=== PATIENT | female | born 1970 | race Caucasian/White ===

== ENCOUNTER 2019-07-06 15:12 | Inpatient (IN) | payer BC ==
[~2019-07-06 15:12] MED LIST: Dexamethasone 20 MG/5 ML VIAL ONE; Lidocaine 1% PF 5 ML VIAL ONE; Metoclopramide HCl 10 MG/2 ML VIAL ONE; Ondansetron PF 4 MG/2 ML Vial ONE; PHENYLEPHRINE-NS 100 MCG/ML 10 ML SYRINGE ONE; PROPOFOL 200 MG/20 ML VIAL ONE; Succinylcholine Chloride 20 MG/ML 10 ml SYRINGE FS ONE; ePHEDrine 50 MG/ML VIAL ONE
[2019-07-06] MEDS ORDERED: Adacel (T-DAP) 0.5 ML SYRINGE ONE (15:19)
[2019-07-06] MEDS ORDERED: Ondansetron PF 4 MG/2 ML Vial ONE (15:25)
[2019-07-06] MEDS ORDERED: Morphine 4 MG/ML VIAL ONE ×2 (15:25→15:46)
[2019-07-06 15:29] LABS: #Eosinphils 0.1 thou/uL (0.0-0.7); #Lymphocytes 2.1 thou/uL (1.20-3.40); #Monocytes 0.4 thou/uL (0.11-0.59); #Neutrophils 4.4 thou/uL (1.40-6.50); %Basophils 0.7 % (0.0-1.0); %Eosinophils 0.7 % (0.0-10.0); %Lymphocytes 29.6 % (21.0-51.0); %Monocytes 5.6 % (0.0-10.0); %Neutrophils 63.3 % (42.0-75.0); Hemoglobin 12.4 g/dL (12.0-16.0); Mean Corpuscular HGB CONC 34.9 g/dL (32.0-36.0); Mean Corpuscular Hemoglobin 32.6 pg (27.0-31.0); Mean Corpuscular Volume 93.4 fL (78.0-98.0); Mean Platelet Volume 8.5 fL (7.4-10.4); Platelet Count 257 thou/uL (130-400); RBC Distribution Width 11.9 % (11.5-14.5); Red Blood Cell (RBC) Count 3.79 mill/uL (4.20-5.40); White Blood Cell (WBC) Count 6.9 thou/uL (4.8-10.8)
--- NOTE | 2019-07-06 15:36 | RAD ---
XR Forearm Lt 2 View STANDARD: 07/06/2019 3:18 PM CLINICAL INDICATION: Injury COMPARISON: None. FINDINGS: Comminuted, displaced distal radial fracture with override of fracture fragments, as well as disrupti on of the radiocarpal articulation and widening of the DRUJ. Osseous irregularity present distal ulna likely relating to recent ulnar styloid avulsion injury. IMPRESSION: Fracture dislocation of the distal radius with associated disruption of the radiocarpal alignment and the DRUJ. Distal ulnar fracture. Recommend orthopedic consultation.
[2019-07-06 15:38] LABS: BHCG - Serum Negative (NEGATIVE); Pregs Control Background? CLEAR/WHITE (CLR/WHITE); Pregs Control Bar Appear? YES (CONTROL BAR)
--- NOTE | 2019-07-06 15:38 | RAD ---
Exam: Chest one view HISTORY:Injury Comparison: None FINDINGS: Lungs: No masses or consolidation. Cardiac silhouette: Normal size Pulmonary vessels: Normal Pleural Spaces: Clear Pneumothorax: None Osseous abnormalities: None of acuity. IMPRESSION: No focal consolidation.
--- NOTE | 2019-07-06 15:48 | CT ---
Exam: CT brain PROVIDED CLINICAL HISTORY: Head injury COMPARISON: None FINDINGS: The ventricular system is normal in size and morphology. No evidence for intracranial hemorrhage or mass effect. Right parietal scalp swelling without evidence for skull fracture. IMPRESSION: No evidence for intracranial hemorrhage or mass effect.
--- NOTE | 2019-07-06 15:49 | CT ---
EXAM: CT cervical spine PROVIDED CLINICAL HISTORY: Trauma COMPARISON: None FINDINGS: No evidence for fracture or traumatic subluxation. No prevertebral soft tissue swelling apparent. Vi sualized lung apices appear clear. IMPRESSION: No evidence for fracture or traumatic subluxation.
[2019-07-06 15:50] LABS: ALT (SGPT) 15 U/L (8-55); AST (SGOT) 15 U/L (5-34); Albumin 4.4 g/dL (3.5-5.0); Alkaline Phosphatase 67 U/L (40-150); Anion Gap 14 mmol/L (10-20); BUN (Urea Nitrogen) 15 mg/dL (7.0-18.7); Bilirubin, Total 0.3 mg/dL (0.2-1.2); Calc. Creatinine Clearance 0 mL/min (70-130); Calcium 9.7 mg/dL (7.8-10.44); Carbon Dioxide 18 mmol/L (22-29); Chloride 105 mmol/L (98-107); Estimated GFR-MDRD 67; Globulin 2.6 g/dL (2.4-3.5); Glucose 109 mg/dL (70-105); Potassium 4.2 mmol/L (3.5-5.1); Sodium 133 mmol/L (136-145)
[2019-07-06] MEDS ORDERED: Fentanyl 100 MCG/2 ML VIAL ONE ×4 (15:56→21:15)
[2019-07-06] MEDS ORDERED: Lidocaine 1% PF 5 ML VIAL ONE (16:03)
[2019-07-06] MEDS ORDERED: Lidocaine 1% w/Epinephrine 1:100K 20 ML VIAL ONE (16:03)
[2019-07-06] MEDS ORDERED: Sodium Chloride 0.9% 30 ML ONE ×2 (16:28→18:33)
[2019-07-06] MEDS ORDERED: Bupivacaine PF 0.5% 30 ML VIAL ONE (16:28)
[2019-07-06] MEDS ORDERED: Bacitracin Zinc Ointment 30 gm TUBE ONE (16:28)
[2019-07-06] MEDS ORDERED: Heparin 10,000 UNITS/1 ML VIAL ONE (16:32)
[2019-07-06] MEDS ORDERED: Hetastarch 6% 500 ML 0 ML ONE (16:32)
[2019-07-06] MEDS ORDERED: Betamet Acet/Betamet Na Ph 30 MG/5 ML VIAL ONE (16:32)
[2019-07-06] MEDS ORDERED: Lidocaine 2% PF 5 ML VIAL ONE (16:32)
[2019-07-06] MEDS ORDERED: Ondansetron PF 4 MG/2 ML Vial IVP PRN (16:55)
[2019-07-06] MEDS ORDERED: Dextrose 5% in Water 1,000 ML IV PRN (16:55)
[2019-07-06] MEDS ORDERED: HumaLOG 300 UNITS/3 ML VIAL SC PRN (16:55)
[2019-07-06] MEDS ORDERED: Ondansetron ODT 4 MG TAB PO PRN (16:55)
[2019-07-06] MEDS ORDERED: hydrALAZINE 20 MG/ML VIAL SLOW IVP PRN (16:55)
[2019-07-06] MEDS ORDERED: Dextrose 50% Abboject 50 ML SYRINGE SLOW IVP PRN (16:55)
[2019-07-06] MEDS ORDERED: Scopolamine 1.5 mg/72 hour Patch ONE (16:55)
[2019-07-06] MEDS ORDERED: traMADol HCl 50 MG TAB PO PRN ×3 (16:58→21:22)
[2019-07-06] MEDS ORDERED: Ibuprofen 600 MG TAB PO PRN (16:58)
[2019-07-06] MEDS ORDERED: Sodium Chloride 0.9% 1,000 ML IV SCH (17:00)
[2019-07-06] MEDS ORDERED: Promethazine HCl 25 MG/ML VIAL ONE (17:28)
--- NOTE | 2019-07-06 18:50 | HP ---
HISTORY OF PRESENT ILLNESS: Ms. Yeh is a 48-year-old female who presented to the ER via EMS after being ejected off a horse. EMS report patient was thrown out of horse and she landed on a concrete wall hitting her hand and she sustained a large laceration of the back of her head, open fracture of the left wrist. The patient reports numbness of the left finger. She is unsure if she lost consciousness. She denies leg or hip pain. Upon arrival, patient's GCS was 15, complained of pain from the laceration on the back of her head and left wrist pain. Denies chest, abdominal, pelvic, or lower extremity pain. REVIEW OF SYSTEMS: Noncontributory except per HPI. PAST MEDICAL HISTORY: Deny past medical history. ALLERGY: No known allergies. SOCIAL HISTORY: The patient denies using alcohol, smoking, or drug use. PHYSICAL EXAMINATION: GENERAL: The patient is lying down in bed, in no acute distress. VITAL SIGNS: Blood pressure 120/77, heart rate 84, respiratory rate 17, temperature 98, pain from left wrist is 7/10. HEENT: On occipital area, there is a 3 cm laceration with large underlying hematoma with a small amount of superficial bleeding. Eyes, pupils are equal round, 3 mm and reactive to light. Extraocular muscle intact. NECK: Trachea midline. Normal range of motion. CHEST: Atraumatic. No crepitus. No pain on palpation. LUNGS: Clear bilaterally. HEART: Regular rate and rhythm. ABDOMEN: Nontender. No bruising. No deformity. Bowel sounds active. PELVIS: Stable. Nontender to palpation. EXTREMITIES: Left wrist obvious deformity of distal left wrist with visible bone and tendon _lost sensation to ulnar distribution of left hand, normal radial distribution sensation. The patient reports she cannot move her finger, but withdraw them to pain. Lower extremity, sensation normal. No deformity. Range of motion normal. NEUROLOGIC: No focal neurology except stated above. Speech normal. RADIOLOGY: Head CT negative. Cervical spine CT negative. Chest CT and chest x -ray are negative. Upper extremity show fracture dislocation of left distal radius. LABORATORY DATA: White count 6.9, hemoglobin 12.4, sodium 133, potassium 4.2, creatinine is 0.9, and AST 15, ALT 15. ASSESSMENT: 1. Status post ejected off a horse. 2. Open left wrist fracture, displaced. ulnar nerve neurology compromise, distribution, neurology compromise, 3. Skin laceration of occipital area. PLAN: Orthopedic and hand specialist Dr. Quinones will take the patient to the OR for ORIF of left wrist fracture and left hand neurology compromise as well as posterior head laceration, washout and closure. The patient will be put on pain control, nonpharmacological VTE prophylaxis. The patient will be discussed placement postop and pharmacological VTE prophylaxis postop. Job ID: [id number] MTDD
[2019-07-06] MEDS ORDERED: Promethazine HCl 25 MG/ML VIAL IM PRN ×2 (19:53→21:22)
[2019-07-06] MEDS ORDERED: Promethazine HCl 25 MG/ML VIAL SLOW IVP PRN (19:53)
[2019-07-06] MEDS ORDERED: Ondansetron HCl/PF 4 MG/2 ML Vial IVP PRN (19:53)
[2019-07-06] MEDS ORDERED: PHENYLEPHRINE-NS 100 MCG/ML 10 ML SYRINGE ONE (19:54)
--- NOTE | 2019-07-06 20:07 | RAD ---
Intraoperative imaging of the left wrist: 07/06/2019 HISTORY: ORIF FINDINGS: 3 intraoperative radiographs demonstrate percutaneous pinning of a comminuted distal radial fracture. There is a transverse fracture at the base of the ulnar styloid. IMPRESSION: ORIF as above.
[2019-07-06] MEDS ORDERED: Bisacodyl 10 MG SUPP PR PRN (21:22)
[2019-07-06] MEDS ORDERED: Milk Of Magnesia 30 ML UDCUP PO PRN (21:22)
[2019-07-06] MEDS ORDERED: Ondansetron PF 4 MG/2 ML Vial IV PRN (21:22)
[2019-07-06] MEDS ORDERED: Fentanyl 100 MCG/2 ML VIAL SLOW IVP PRN (21:22)
[2019-07-06] MEDS ORDERED: Acetaminophen 325 MG TAB PO PRN (21:22)
[2019-07-06] MEDS ORDERED: Meperidine HCl/PF 25 MG/ML VIAL IM PRN (21:30)
[2019-07-06] MEDS ORDERED: TETANUS AND DIPHTHERIA TOX/PF 0.5 ML DISP.SYRIN IM SCH (21:30)
[2019-07-06] MEDS ORDERED: Ketorolac Tromethamine 30 MG/ML VIAL ONE (21:31)
--- NOTE | 2019-07-06 21:38 | RAD ---
2 views of the left wrist: 07/06/2019 at 8:15 PM COMPARISON: Prior study on 07/06/2019 HISTORY: Evaluate postoperative change, instrument count FINDINGS: There is a transverse fracture at the base of the ulnar styloid. There is a comminuted dist al left radius fracture treated with 4 percutaneous pins. There is a post operative clip within the soft tissues lateral to the distal radius and along the volar cortex of the distal radius. There is a second postoperative clip projecting near the tip of the radial styloid laterally and anteriorly. IMPRESSION: Postoperative change as above.
[2019-07-06] MEDS: Acetaminophen 500 MG TAB PO SCH ×2 (22:36→23:53)
[2019-07-06 22:38] VITALS: BMI 27.4
[2019-07-06] MEDS ORDERED: traZODone HCl 50 MG TAB PO SCH (23:30)
[2019-07-06] MEDS ORDERED: Aripiprazole 10 MG TAB PO SCH (23:45)
[2019-07-06] MEDS: Gentamicin 80 MG/2 ML VIAL IM SCH (23:51)
[2019-07-06] MEDS: Famotidine/PF 20 mg/2ml Vial SLOW IVP SCH (23:51)
[2019-07-06] MEDS: Ketorolac Tromethamine 30 MG/ML VIAL IVP SCH (23:51)
[2019-07-06] MEDS: Gabapentin 100 MG CAP PO SCH (23:52)
[2019-07-06] MEDS: Vancomycin HCl 1 GM in Premix Bag 1 BAG IVPB SCH (23:52)
[2019-07-06] MEDS: Senokot S 8.6-50 MG TAB PO SCH (23:53)
[2019-07-07] MEDS: Sodium Chloride 0.9% 100 ML IV SCH ×4 (00:27→04:59)
[2019-07-07] MEDS: Morphine 4 MG/ML VIAL SLOW IVP PRN ×2 (01:45→20:37)
--- NOTE | 2019-07-07 02:13 | OP ---
DATE OF PROCEDURE: 07/06/2019 PREOPERATIVE DIAGNOSIS: Irregular complex scalp laceration with hematoma formation. POSTOPERATIVE DIAGNOSIS: Irregular complex scalp laceration with hematoma formation. PROCEDURE PERFORMED: Irrigation and debridement, washout and primary closure of scalp laceration. ANESTHESIA: General via endotracheal tube. COMPONENTS USED: Prolene 2-0 stitches x4 in a trauma stitch pattern for primary closure. FINDINGS: Large stellate irregular laceration of the parieto-occipital region of the scalp when undermining secondary to active unnamed vascular bleeding. Large hematoma formation and irregular skin margins. INDICATION FOR PROCEDURE: Phyllis is a 48-year-old female, who fell off a horse earlier this evening, was brought in with an open left distal radius fracture dislocation. She was taken to the operative suite for immediate open reduction and internal fixation due to neural status diminishment of the median nerve and also open fracture of the distal radius. At the same time, we performed an irrigation and debridement and primary closure of the large posterior scalp lesion on the right parietal region of the scalp. DESCRIPTION OF PROCEDURE: After informed consent was obtained in the preoperative holding area, the patient was taken to the operative suite, positioned appropriately. General anesthesia was induced. Once adequate level of anesthesia was obtained, the patient was positioned on a donut for access to the right posterior parieto-occipital region of the scalp, where a very large stellate irregular approximately 20 x 20 cm laceration was sustained during her fall. The area of the scalp was inspected. Excess hair was debrided with scissors. A sterile field was established and hematoma was evacuated immediately which was approximately 30 x 30 mm in diameter. Active bleeding was identified and noted. The area was prepped and draped in usual sterile fashion. Once this was accomplished, copious irrigation of 2 L of normal saline was run through and lavaged out. All debris was removed and the wound was then inspected at full depth. A Gelpi retractor was placed. Two separate the vascular bleeders were identified and cauterized and controlled. Local pressure was used to control venous bleeding. Again, irrigation was carried out after cautery. The wound edges were inspected and found to be macerated and margins and this was a very irregular injury. The wound edges were freshened up a bit, but I left as much as possible for tamponade reasons. Once full irrigation was completed, I then used large 2-0 Prolene in a horizontal mattress and trauma style stitches to reapproximate grossly and close down the space. There was a large cavitary lesion of space. I was able to inspect the skull, the galea, I was unable to reclose due to the irregularity of the wound itself. There were no cracks or fissures in the skull with palpation. Once primary closure was accomplished, triple antibiotic was then applied and this was left without a sterile dressing. The procedure was terminated without any complications. The patient tolerated well. This was performed concomitantly while Dr. Quinones was performing open reduction and internal fixation of the left distal radius. Job ID: [id number]
[2019-07-07 04:20] LABS: #Lymphocytes 0.9 thou/uL (1.20-3.40); #Monocytes 0.4 thou/uL (0.11-0.59); #Neutrophils 10.7 thou/uL (1.40-6.50); %Lymphocytes 7.4 % (21.0-51.0); %Monocytes 3.5 % (0.0-10.0); Mean Corpuscular HGB CONC 33.9 g/dL (32.0-36.0); Mean Corpuscular Hemoglobin 32.5 pg (27.0-31.0); Mean Platelet Volume 8.4 fL (7.4-10.4); Platelet Count 228 thou/uL (130-400); RBC Distribution Width 11.9 % (11.5-14.5); Red Blood Cell (RBC) Count 3.08 mill/uL (4.20-5.40)
[2019-07-07 04:27] LABS: INR-International Normal Ratio 1.1; Prothrombin Time 14.2 SEC (12.0-14.7)
[2019-07-07 04:40] LABS: ALT (SGPT) 14 U/L (8-55); AST (SGOT) 18 U/L (5-34); Albumin 3.8 g/dL (3.5-5.0); Alkaline Phosphatase 54 U/L (40-150); Anion Gap 10 mmol/L (10-20); BUN (Urea Nitrogen) 14 mg/dL (7.0-18.7); Bilirubin, Total 0.4 mg/dL (0.2-1.2); Calc. Creatinine Clearance 99 mL/min (70-130); Calcium 8.3 mg/dL (7.8-10.44); Carbon Dioxide 23 mmol/L (22-29); Chloride 107 mmol/L (98-107); Estimated GFR-MDRD 75; Globulin 2.1 g/dL (2.4-3.5); Glucose 162 mg/dL (70-105); Potassium 4.6 mmol/L (3.5-5.1); Protein, Total 5.9 g/dL (6.0-8.3); Sodium 135 mmol/L (136-145)
[2019-07-07 04:41] LABS: PTT 20.7 SEC (22.9-36.1)
[2019-07-07] MEDS: Acetaminophen 500 MG TAB PO SCH (05:00)
[2019-07-07] MEDS: Levothyroxine Sodium 112 MCG TAB PO SCH (05:00)
[2019-07-07] MEDS: Ketorolac Tromethamine 30 MG/ML VIAL IVP SCH ×3 (05:08→20:45)
--- NOTE | 2019-07-07 06:29 | PRG ---
DATE OF SERVICE: 07/07/2019 SUBJECTIVE: The patient is currently on the surgical floor. She is status post being ejected from a horse in which she sustained an open left wrist fracture with neurologic compromise. The patient was taken emergently to the operating room to undergo open reduction and internal fixation and irrigation and debridement of same. The patient also sustained a complex laceration to her scalp that was also repaired in the operating room by the orthopedic team. Postoperatively, there were no reported issues. Her pain was controlled and she was tolerating a diet. The patient will be made n.p.o. after midnight as Dr. Quinones plans on a second washout tomorrow evening, that will be the evening of 07/07. PHYSICAL EXAMINATION: VITAL SIGNS: Stable. The patient is afebrile. GENERAL: The patient is resting comfortably in bed. She appears in no distress. She is sleeping. ASSESSMENT: 1. Status post ejection from horse. 2. Open left wrist fracture with neurologic deficit. 3. Status post complex laceration of occipital scalp, status post irrigation, debridement, and closure in the operating room. PLAN: Plan will be to continue supportive care. The patient again will be n.p.o. in preparation for her planned irrigation and debridement of her wrist. Postoperatively, we will have her begin physical and occupational therapy and discuss placement. Job ID: [id number]
[2019-07-07] MEDS: Sodium Chloride 0.9% 1,000 ML IV SCH ×2 (06:38→08:35)
[2019-07-07] MEDS: Gentamicin 80 MG/2 ML VIAL IM SCH ×2 (08:36→17:24)
[2019-07-07] MEDS: Famotidine/PF 20 mg/2ml Vial SLOW IVP SCH ×2 (08:36→20:44)
[2019-07-07] MEDS: Bupropion 150 MG XL TAB PO SCH (09:02)
[2019-07-07] MEDS: Aspirin 81 mg Enteric Coated Tablet PO SCH ×2 (09:02→20:45)
[2019-07-07] MEDS: Liothyronine Sodium 5 MCG TAB PO SCH (09:03)
[2019-07-07] MEDS: Gabapentin 100 MG CAP PO SCH ×2 (09:03→20:45)
[2019-07-07] MEDS: FLUoxetine HCl 20 MG CAP PO SCH (09:03)
[2019-07-07] MEDS: Senokot S 8.6-50 MG TAB PO SCH ×2 (09:03→20:45)
[2019-07-07] MEDS: Polyethylene Glycol 3350 17 GM Packet PO SCH (09:03)
[2019-07-07 10:42] LABS: Hemoglobin 9.8 g/dL (12.0-16.0); Mean Corpuscular HGB CONC 34.7 g/dL (32.0-36.0); Mean Corpuscular Hemoglobin 32.5 pg (27.0-31.0); Mean Corpuscular Volume 93.5 fL (78.0-98.0); Mean Platelet Volume 8.4 fL (7.4-10.4); Platelet Count 193 thou/uL (130-400); Red Blood Cell (RBC) Count 3.02 mill/uL (4.20-5.40); White Blood Cell (WBC) Count 12.2 thou/uL (4.8-10.8)
[2019-07-07 10:58] LABS: #Eosinphils 0.1 thou/uL (0.0-0.7); #Monocytes 0.8 thou/uL (0.11-0.59); #Neutrophils 9.3 thou/uL (1.40-6.50); %Basophils 0.3 % (0.0-1.0); %Lymphocytes 16.4 % (21.0-51.0); %Monocytes 6.4 % (0.0-10.0); Lymphocytes 15 % (21-51); MDiff Complete? YES; Monocytes 6 % (0-10); Neutrophil 79 % (42-75); Platelet Morphology Comment Appears Adequate
--- NOTE | 2019-07-07 11:39 | RAD ---
EXAM: XR Humerus Lt 2 View STANDARD PROVIDED CLINICAL HISTORY: Pain FINDINGS: There is no evidence for fracture or other acute osseous abnormality. Alignment appears anatomic. Lesli nt spaces appear preserved. IMPRESSION: No evidence for an acute osseous abnormality. If there is persistent clinical concern, conservative m anagement and follow-up imaging advised.
--- NOTE | 2019-07-07 11:39 | RAD ---
EXAM: XR Shoulder Lt 3 View STANDARD PROVIDED CLINICAL HISTORY: Pain FINDINGS: There is no evidence for fracture or other acute osseous abnormality. Alignment appears anatomic. Lesli nt spaces appear preserved. IMPRESSION: No evidence for an acute osseous abnormality. If there is persistent clinical concern, conservative m anagement and follow-up imaging advised.
[2019-07-07] MEDS: Vancomycin HCl 1 GM in Premix Bag 1 BAG IVPB SCH ×2 (11:40→23:34)
[2019-07-07] MEDS ORDERED: Bupivacaine PF 0.5% 30 ML VIAL ONE (11:55)
[2019-07-07] MEDS ORDERED: Bacitracin Zinc Ointment 30 gm TUBE ONE (11:55)
--- NOTE | 2019-07-07 12:04 | PRG ---
DATE OF SERVICE: 07/07/2019 SUBJECTIVE: Ms. Yeh is complaining of scalp pain and headache. She has limited ability to move the fingers of her left hand. She has no other complaints. Her pain is otherwise well controlled. Plans are for exploration and washout again today this evening by Dr. Quinones. OBJECTIVE: VITAL SIGNS: Blood pressure 96/60, pulse 72, she is afebrile. CHEST: Clear. HEART: Regular rate. ABDOMEN: Soft, nontender. EXTREMITIES: No obvious otherwise extremity deformity. Left upper extremity is wrapped in a splint. LABORATORY DATA: White blood cell count is 12, hemoglobin 9.8. Creatinine 0.81. ASSESSMENT: Left open wrist fracture with questionable median nerve injury. PLAN: 1. Per Hand Surgery, Dr. Quinones. 2. Scalp laceration closed. Trauma Team will continue to follow. Job ID: [id number]
[2019-07-07] MEDS ORDERED: HYDROmorphone 0.5 MG/0.5 ML SYRINGE ONE (12:27)
[2019-07-07] MEDS ORDERED: Fentanyl 100 MCG/2 ML VIAL ONE ×2 (12:27→14:30)
[2019-07-07] MEDS ORDERED: Tobramycin Sulfate 1.2 GM VIAL ONE (13:01)
[2019-07-07] MEDS ORDERED: Ondansetron HCl/PF 4 MG/2 ML Vial IVP PRN (14:07)
[2019-07-07] MEDS ORDERED: HYDROmorphone 2 MG/ML VIAL SLOW IVP PRN (14:07)
[2019-07-07] MEDS ORDERED: PACU-Morphine 4MG/ML VIAL SLOW IVP PRN (14:07)
[2019-07-07] MEDS ORDERED: Promethazine HCl 25 MG/ML VIAL SLOW IVP PRN (14:07)
[2019-07-07] MEDS ORDERED: Promethazine HCl 25 MG/ML VIAL IM PRN (14:07)
[2019-07-07] MEDS: Acetaminophen 1,000 MG in Premix Bag 1 BAG IVPB SCH ×2 (14:21→17:25)
[2019-07-07] MEDS ORDERED: Lidocaine 1% PF 5 ML VIAL ONE (15:52)
[2019-07-07] MEDS ORDERED: PROPOFOL 200 MG/20 ML VIAL ONE (15:52)
[2019-07-07] MEDS ORDERED: Ondansetron PF 4 MG/2 ML Vial ONE (15:52)
[2019-07-07] MEDS ORDERED: Ketorolac Tromethamine 30 MG/ML VIAL ONE (15:52)
[2019-07-07] MEDS ORDERED: Dexamethasone 20 MG/5 ML VIAL ONE (15:52)
[2019-07-07] MEDS: Aripiprazole 10 MG TAB PO SCH (20:45)
[2019-07-07] MEDS: traZODone HCl 50 MG TAB PO SCH (20:45)
[2019-07-08] MEDS: HYDROcodone/Acetaminophen 5/325 mg Tablet PO PRN ×3 (00:44→20:20)
[2019-07-08] MEDS: Acetaminophen 1,000 MG in Premix Bag 1 BAG IVPB SCH ×2 (00:46→05:24)
[2019-07-08] MEDS: Gentamicin 80 MG/2 ML VIAL IM SCH ×3 (00:47→16:03)
--- NOTE | 2019-07-08 01:14 | PRG ---
DATE OF SERVICE: 07/08/2019 SUBJECTIVE: The patient is currently on the surgical floor. She is status post being ejected from a horse and sustained an open left wrist fracture with a questionable median nerve injury. She also sustained a complex laceration to her scalp. Last night, she underwent irrigation and debridement of her wrist fracture. She also had her scalp laceration closed in the operating room this morning. She underwent a repeat washout of her wrist fracture. Postoperatively, she has been doing well. She is tolerating a diet. Her pain is controlled. OBJECTIVE: VITAL SIGNS: Stable. The patient is afebrile. GENERAL: The patient is resting comfortably in bed. She is awake, alert, and oriented x3. [place] Coma Scale is 15. HEENT: Her scalp dressing is clean, dry, and intact. Otherwise unremarkable. LUNGS: Clear to auscultation bilaterally. HEART: Regular rate and rhythm. ABDOMEN: Soft, flat, nontender with active bowel sounds. EXTREMITIES: Neurovascularly intact x4. Left upper extremity has clean, dry, and intact splint and her extremity appears to be neurovascularly intact to include the median nerve distribution. ASSESSMENT: 1. Status post ejection from horse. 2. Left open wrist fracture, status post irrigation and debridement x2. 3. Scalp laceration, closed in operating room. PLAN: Plan will be to continue supportive care. At this time, Dr. Quinones has the patient on antibiotics and plans to return for definitive management of her fractures on Tuesday. Otherwise, we will encourage diet, out of bed, and await final placement decision. The patient is from [place] and plans on returning as soon as possible. Job ID: [id number]
[2019-07-08] MEDS: Ketorolac Tromethamine 30 MG/ML VIAL IVP SCH (01:59)
[2019-07-08] MEDS: Sodium Chloride 0.9% 1,000 ML IV SCH ×3 (02:02→20:43)
[2019-07-08] MEDS: Levothyroxine Sodium 112 MCG TAB PO SCH (05:24)
[2019-07-08 05:56] LABS: #Eosinphils 0.1 thou/uL (0.0-0.7); #Lymphocytes 2.1 thou/uL (1.20-3.40); #Monocytes 0.5 thou/uL (0.11-0.59); #Neutrophils 7.6 thou/uL (1.40-6.50); %Basophils 0.4 % (0.0-1.0); %Eosinophils 0.7 % (0.0-10.0); %Lymphocytes 20.1 % (21.0-51.0); %Monocytes 5.2 % (0.0-10.0); %Neutrophils 73.5 % (42.0-75.0); Hemoglobin 7.7 g/dL (12.0-16.0); Mean Corpuscular HGB CONC 34.4 g/dL (32.0-36.0); Mean Corpuscular Hemoglobin 32.4 pg (27.0-31.0); Mean Corpuscular Volume 94.3 fL (78.0-98.0); Mean Platelet Volume 8.4 fL (7.4-10.4); Platelet Count 167 thou/uL (130-400); RBC Distribution Width 11.9 % (11.5-14.5); Red Blood Cell (RBC) Count 2.37 mill/uL (4.20-5.40); White Blood Cell (WBC) Count 10.4 thou/uL (4.8-10.8)
[2019-07-08] MEDS ORDERED: Ibuprofen 600 MG TAB PO PRN (08:00)
[2019-07-08] MEDS: Senokot S 8.6-50 MG TAB PO SCH ×2 (08:44→20:18)
[2019-07-08] MEDS: Liothyronine Sodium 5 MCG TAB PO SCH (08:44)
[2019-07-08] MEDS: FLUoxetine HCl 20 MG CAP PO SCH (08:44)
[2019-07-08] MEDS: Aspirin 81 mg Enteric Coated Tablet PO SCH ×2 (08:44→20:18)
[2019-07-08] MEDS: Polyethylene Glycol 3350 17 GM Packet PO SCH (08:45)
[2019-07-08] MEDS: Gabapentin 100 MG CAP PO SCH ×2 (08:45→20:18)
[2019-07-08] MEDS: Bupropion 150 MG XL TAB PO SCH (08:45)
[2019-07-08] MEDS: Famotidine/PF 20 mg/2ml Vial SLOW IVP SCH ×2 (09:56→20:19)
[2019-07-08 10:32] LABS: Vancomycin, Trough 9.3 ug/mL
[2019-07-08] MEDS: traMADol HCl 50 MG TAB PO PRN ×2 (11:48→18:24)
[2019-07-08] MEDS ORDERED: Acetaminophen 325 MG TAB PO PRN (12:00)
[2019-07-08] MEDS: Vancomycin HCl 1.25 GM in Sodium Chloride 0.9% 250 ML 250 ML IVPB SCH (12:00)
[2019-07-08] MEDS: Vancomycin HCl 1 GM in Premix Bag 1 BAG IVPB SCH (12:07)
--- NOTE | 2019-07-08 16:34 | PRG ---
DATE OF SERVICE: 07/08/2019 SUBJECTIVE: Ms. Yeh is a 48-year-old. She is status post eject from a horse. She sustained a left wrist fracture, neurologic deficits, and status post complex laceration of the occipital scalp, status post irrigation, debridement, and closure in the operation room. The patient went to the OR yesterday with Dr. Quinones for debridement and exploration of the left hand laceration. Postop, the patient is doing good. Pain is well controlled. Vital signs have been stable. The patient tolerated with regular diet. Dr. Quinones planned to take patient to the OR tomorrow for the final debridement, washout, and fixation. PHYSICAL EXAMINATION/OBJECTIVE: GENERAL: The patient lying down in bed with no acute distress. Pain is tolerable. VITAL SIGNS: Temperature 97.8, heart rate 67, blood pressure 97/61, respiratory rate 16, and O2 saturation 98% on room air. LUNGS: Clear bilaterally. HEART: Regular rate and rhythm. ABDOMEN: Soft, nondistended. EXTREMITIES: Left wrist splint dressing clean, dry, intact and neurovascularly intact. NEUROLOGIC: The left hand is numb, but the patient able to move all 5 fingers. No new neurology deficits. LABORATORY: cortisol serum: < 1 microgram/ dl ASSESSMENT: 1. Status post eject from a horse. 2. Open left wrist fracture with neurologic deficits, status post open reduction and internal fixation. 3. Status post complex laceration of the occipital scalp, status post irrigation , debridement and primary closure. 4. Adrenal insufficiency PLAN: Will be to continue supportive care. Continue pain control. The patient will be go to the OR tomorrow with Dr. Quinones for final debridement and fixation of left hand fracture. Initiate hydrocortisone treatment for adrenal insufficiency Job ID: [id number] [facility]
[2019-07-08] MEDS ORDERED: Hydrocortisone Sod Succ/PF 100 mg/2 ml Vial IVP SCH ×3 (18:00→23:59)
[2019-07-08] MEDS: traZODone HCl 50 MG TAB PO SCH (20:18)
[2019-07-08] MEDS: Aripiprazole 10 MG TAB PO SCH (20:19)
[2019-07-09] MEDS: Hydrocortisone Sod Succ/PF 100 mg/2 ml Vial IVP SCH ×5 (00:03→23:09)
[2019-07-09] MEDS: Gentamicin 80 MG/2 ML VIAL IM SCH ×3 (00:04→16:25)
[2019-07-09] MEDS: Vancomycin HCl 1.25 GM in Sodium Chloride 0.9% 250 ML 250 ML IVPB SCH ×2 (00:05→11:21)
[2019-07-09] MEDS: HYDROcodone/Acetaminophen 5/325 mg Tablet PO PRN ×2 (00:17→23:11)
[2019-07-09 05:25] LABS: #Lymphocytes 1.3 thou/uL (1.20-3.40); #Monocytes 0.3 thou/uL (0.11-0.59); %Basophils 0.2 % (0.0-1.0); %Eosinophils 0.2 % (0.0-10.0); %Lymphocytes 12.6 % (21.0-51.0); %Monocytes 2.7 % (0.0-10.0); %Neutrophils 84.3 % (42.0-75.0); Hemoglobin 7.7 g/dL (12.0-16.0); Mean Corpuscular HGB CONC 33.1 g/dL (32.0-36.0); Mean Corpuscular Hemoglobin 32.2 pg (27.0-31.0); Mean Corpuscular Volume 97.2 fL (78.0-98.0); Mean Platelet Volume 8.5 fL (7.4-10.4); Platelet Count 201 thou/uL (130-400); RBC Distribution Width 12.1 % (11.5-14.5); Red Blood Cell (RBC) Count 2.39 mill/uL (4.20-5.40); White Blood Cell (WBC) Count 10.6 thou/uL (4.8-10.8)
[2019-07-09] MEDS: Levothyroxine Sodium 112 MCG TAB PO SCH (05:43)
[2019-07-09] MEDS: Sodium Chloride 0.9% 1,000 ML IV SCH ×2 (09:13→17:43)
[2019-07-09] MEDS: Morphine 4 MG/ML VIAL SLOW IVP PRN (09:14)
[2019-07-09] MEDS: Senokot S 8.6-50 MG TAB PO SCH ×2 (09:27→23:08)
[2019-07-09] MEDS: Gabapentin 100 MG CAP PO SCH ×2 (09:27→23:08)
[2019-07-09] MEDS: Bupropion 150 MG XL TAB PO SCH (09:27)
[2019-07-09] MEDS: Liothyronine Sodium 5 MCG TAB PO SCH (09:28)
[2019-07-09] MEDS: Ferrous Sulfate 325 MG TAB PO SCH ×2 (09:29→17:43)
[2019-07-09] MEDS: FLUoxetine HCl 20 MG CAP PO SCH (09:29)
[2019-07-09] MEDS: Ascorbic Acid 500 mg Chewable Tablet PO SCH ×2 (09:30→23:09)
[2019-07-09] MEDS: Famotidine/PF 20 mg/2ml Vial SLOW IVP SCH ×2 (09:30→23:10)
[2019-07-09] MEDS: Polyethylene Glycol 3350 17 GM Packet PO SCH (09:31)
[2019-07-09] MEDS: Aspirin 81 mg Enteric Coated Tablet PO SCH ×2 (10:03→23:09)
--- NOTE | 2019-07-09 10:58 | OP ---
DATE OF PROCEDURE: 07/06/2019 PREOPERATIVE DIAGNOSES: Left grade 2 open distal radius fracture with marked comminution ulnar styloid type C fracture with contamination. POSTOPERATIVE DIAGNOSES: Left grade 2 open distal radius fracture with marked comminution ulnar styloid type C fracture with contamination with findings there was a grade 3A fracture in terms of bony involvement, contamination, split intra-articular fracture, possible contamination and gross dirt particles found in the wound today. This included deep in the fracture fragments on both the ulnar and radius side of the wrist. Therefore, the other findings were a radial artery branch laceration and very comminuted intra-articular fracture with TFC involvement and a type C ulnar styloid fracture through the base. PROCEDURES PERFORMED: 1. Debridement of radius bone. 2. Debridement of ulnar bone, both open fractures. 3. Debridement of material associated with open fracture. 4. Open treatment/reduction with pinning, distal radius fracture. 5. Ulnar neuroplasty. 6. Radial neuroplasty. 7. Ligation of radial artery branch bleeder. 8. C-arm. SPECIMENS: Some comminuted bone material was removed but not sent to the lab. ESTIMATED BLOOD LOSS: Approximately 75 mL. TOURNIQUET TIME: 100 minutes. 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 She immediately noticed deformity and bleeding at the scene on the palmar aspect of the wrist and she also noticed inability to feel. She had absent light touch to median nerve distribution borderline, light touch in ulnar distribution distal to the laceration of the ulnar forearm and for this reason, the amount of comminution and contamination seen, urgent debridement and stabilization was indicated. DESCRIPTION OF PROCEDURE: After successful general endotracheal, limb was prepped and draped. We then gave a 20 mL of 0.5% Marcaine, found her time-out to be appropriate and saw her transverse 3.5 cm laceration beginning over the flexor carpi ulnaris and then coursing to the level of the median nerve. Because of the neurapraxia seen preop on exam, she underwent first, debridement of the bone fragment using curette, [place] blade, multiple rongeurs of different sizes, and a complete 360 degree evaluation of the joint and after this the debridement was complete. We removed material associated with open fracture with at least 6 different marissa of dirt/sand, and irrigated and visualized the joint with 5 L Pulsavac for the joint, 8 L total for the wound and bone within the joint, and then we were able to visualize all fragments. The patient had at least a 4 part intra-articular fracture with a separate component in the posterior ulnar complex from the anterior complex aligned by hand. Once we had this realigned, we pinned it with neutral tilt, 1 mm radial height. The limb was exsanguinated, the tourniquet was inflated to 250 mmHg pressure, the incision was extended even more extensile and we did a neuroplasty of the median nerve using blunt dissection well past the level where the primary sensory branch divided and this was in the level of the injury and we saw stipling early, hematoma around the nerve, and appeared to be a vessel, radial artery branch, to have laceration which we repaired. We ligated it. The patient had the curette used again and again to debride the fracture fragments and before we reduced them, we saw there was bone loss and comminution, so eventually bone grafting will be recommended but not early after the . The patient then had the joint leveled, less than 0.25 mm visualization and was able to restore the articular surface and its relationship to the distal radius with approximately 5 degree palmar tilt. There was still no evidence of such constellation injury. The patient then had because of the gross contamination of radius, two K-wire passes and was able to reproduce the construct where it was level with the joint except for a small gap of 1 mm but equal height and distance for the graft and there was no evidence of further debridement contamination with further debridement, so we then approached the ulna styloid through an extensile approach, elevated up the fragment, and here performed a neuroplasty of the ulnar nerve, distal and proximally. There was no evidence of abnormality to include no traumatic injury laceration or even a branch bleeding. The patient then had the total of 8 L Pulsavac irrigated, divided equally amongst all joints to include saving some for satellite places. The patient had no other wound contamination, but the K-wires that were used was decided because of the early contamination to undergo a bone debridement again, debridement via Pulsavac for the third time during this procedure and then there was excellent apposition, not a fragment, joint leveled, wires were cut below the skin and as we deflated the tourniquet, we noticed bleeding briskly from deep around one of the K-wires and here we saw laceration reverting of a branch of the radial artery, but not the primary dorsal branch. We then obtained hemostasis using two vessel clips and then removed the and there was no further bleeding. The skin was approximated using 4-0 Monocryl in a running fashion, deep dermal and epidermis with 4-0 nylon interrupted mattress pattern. Bulky dressing was applied and the patient then left the operating room without evidence of anesthetic or operative complication. Job ID: [id number]
--- NOTE | 2019-07-09 11:11 | OP ---
DATE OF PROCEDURE: 07/07/2019 PREOPERATIVE DIAGNOSES: 1. Left wrist open wound with possible contamination and still with leukocytosis. 2. Left distal radius and ulna fracture with possible contamination. FINDINGS: 1. A small hematoma with a surrounded area of nonviable muscle deep to flexor tendons and at the proximal aspect of pronator quadratus muscle. 2. Application of antibiotic beads both in the primary fracture site and in the deep wound. 3. Debridement of bone and material associated with open fracture. 4. Debridement of wound as described below. TOURNIQUET TIME: 24 minutes. ESTIMATED BLOOD LOSS: 25 mL. Amount of wound debridement as follows: 1. Depth was down to including the bone, fracture site, including opening of the joint, especially in the ulnocarpal joint. 2. There was excision technique. 3. Amount of the nonviable muscle was approximately 1 tablespoon in the regions as described above, and there was small particle aspect, only 2 total found throughout the entire wound on inspection, debridement, and irrigation. 4. The four instruments used were the Pulsavac, tenotomy scissors, Ace Echevarria pickups and Adson pickups, and curette. 5. The findings included no gross infection. Small amount of particle, where a small amount of nonviable muscle without true necrosis, and a small hematoma. DESCRIPTION OF PROCEDURE: After successful general endotracheal anesthesia, the limb was prepped and draped. The patient then had time-out done appropriately, wound was betadine prepped because it was open and immediately, we gave the patient 30 mL of 0.5% Marcaine barbara-incisional block throughout the large wound. We had removed the previous sutures, and then we began to inspect. Ulnar artery pulse as well as radial artery pulse visualized without bleeding. We then dissected down to the fracture, debrided with a curette the edges, the shaft, and even the endosteal area that was exposed without manipulating the K-wires and length was well maintained of the fracture. We found 1 particle where area of the ulnar muscle, we found 1 particle, little debris in the area where the ulnar muscle had been violated and deep to this was a flexor tendon muscle belly which had some nonviable muscle resected using the instrumentations and technique listed in "debridement" above. After we had done this and finished debriding the bone, we then inspected the radiocarpal joint. No gross contamination or hematoma, and the ulnocarpal joint had small amount of bleeding, and we debrided the deep capsule, irrigated with 3 L of Pulsavac pressure in this area along with 3 in the primary fracture site of the radius. We then deflated the tourniquet. We had some tobramycin beads, mixed them on the back table, and once they became hard, we had [address] in the defect in the center between the medial complex and Jay styloid complex without dislodging the fracture. We then obtained hemostasis, closed approximately half of the overall wound, and none of the wound that had been part of the open wound even though we debrided this wound as well today. There was no further nonviable muscle and definitely no necrotic muscle seen. The patient had elevated white count of 12,200 and mid 12,000 eight hours before this, so we did not elect, even though it was a fairly clean wound to place deep hardware. We will do this in 48 hours. A sugar-tong splint was applied. Job ID: [id number]
--- NOTE | 2019-07-09 14:53 | PRG ---
DATE OF SERVICE: 07/09/2019 SUBJECTIVE: Ms. Yeh is a 48-year-old status post eject from a horse. She sustained left wrist fracture, neurologic deficits, and status post complex laceration of the occipital scalp, status post irrigation, debridement and closure in the OR. The patient went to the OR on July 07, with Dr. Quinones for debridement and exploration of the left hand laceration. The patient will plan to have to go to the OR today with Dr. Quinones for another washout and closure and fixation of left hand fracture. This morning, the patient reported doing good. Pain is well controlled. Her vital signs have been stable since we treated adrenal insufficiency with hydrocortisone yesterday. She tolerated with her regular diet. OBJECTIVE: GENERAL: The patient lying down in bed with no acute distress. Pain is tolerable. VITAL SIGNS: Temperature 97.9, heart rate 68, respiratory rate 16, O2 saturation 99% on room air, and blood pressure 135/84. LUNGS: Clear bilaterally. HEART: Regular rate and rhythm. ABDOMEN: Soft and nondistended. EXTREMITIES: Left hand is on splint and left finger, neurology deficits improved. The patient can feel and wiggle on 5 fingers. ASSESSMENT: 1. Status post eject from a horse. 2. Open left wrist fracture with neurology deficits, status post open reduction and internal fixation. Neurology deficits improved, status post complex laceration of occipital scab, status post irrigation, debridement and primary closure. Adrenal insufficiency, treated, improved. PLAN: Plan will be to continue supportive care. Continue pain control. The patient will go to the OR today with Dr. Quinones for final debridement and fixation of left hip fracture. We will consider discontinuing hydrocortisone after the surgery today. Job ID: [id number]
[2019-07-09] MEDS ORDERED: Bupivacaine PF 0.5% 30 ML VIAL ONE (16:03)
[2019-07-09] MEDS ORDERED: Sodium Chloride 0.9% 30 ML ONE (16:04)
[2019-07-09] MEDS ORDERED: Bacitracin Zinc Ointment 30 gm TUBE ONE (16:04)
[2019-07-09] MEDS ORDERED: Thrombin 5000 UNITS/5 ML VIAL ONE (16:04)
[2019-07-09] MEDS ORDERED: Fentanyl 100 MCG/2 ML VIAL ONE ×4 (16:37→21:28)
[2019-07-09] MEDS ORDERED: Midazolam HCl 2 mg/2 ml Vial ONE (16:41)
[2019-07-09] MEDS ORDERED: Ketorolac Tromethamine 30 MG/ML VIAL ONE (20:07)
[2019-07-09] MEDS ORDERED: diphenhydrAMINE 50 MG/ML VIAL ONE (20:07)
[2019-07-09] MEDS ORDERED: Ondansetron PF 4 MG/2 ML Vial ONE (20:07)
[2019-07-09] MEDS ORDERED: PROPOFOL 200 MG/20 ML VIAL ONE (20:07)
[2019-07-09] MEDS ORDERED: Succinylcholine Chloride 20 MG/ML 10 ml SYRINGE FS ONE (20:07)
[2019-07-09] MEDS ORDERED: Lidocaine 1% PF 5 ML VIAL ONE (20:07)
[2019-07-09] MEDS ORDERED: Dexamethasone 20 MG/5 ML VIAL ONE (20:07)
[2019-07-09] MEDS ORDERED: HYDROmorphone 2 MG/ML VIAL SLOW IVP PRN (21:06)
[2019-07-09] MEDS ORDERED: Ondansetron HCl/PF 4 MG/2 ML Vial IVP PRN (21:06)
[2019-07-09] MEDS: traZODone HCl 50 MG TAB PO SCH (23:08)
[2019-07-09] MEDS: Aripiprazole 10 MG TAB PO SCH (23:08)
[2019-07-09] MEDS: CEFAZOLIN 2 GM in Premix Bag 1 BAG IVPB SCH (23:09)
--- NOTE | 2019-07-10 00:31 | PRG ---
DATE OF SERVICE: 07/09/2019 SUBJECTIVE: The patient is currently on the surgical floor. She is status post being thrown from a horse in which she sustained an open left wrist fracture with a possible median nerve injury. She also had a complex laceration to her scalp that was repaired in the operating room at the same time as her initial irrigation and debridement for wrist fracture. The patient underwent a repeat irrigation and debridement and tonight underwent open reduction and internal fixation of her wrist fracture. The patient had just returned from the operating room. At the time of my visit, she was awake and stated that her pain was controlled. She was about to attempt to eat something. Otherwise, she states that she is doing well. OBJECTIVE: VITAL SIGNS: Stable. The patient is afebrile. GENERAL: The patient is resting comfortably in bed she is awake, alert, and oriented x3. Jal Coma Scale is 15. HEENT: The patient has had a shower. She has cleaned the dry blood out of her hair. Her sutures are intact. There appears to be no signs of infection of her scalp wound. LUNGS: Respirations are effortless. EXTREMITIES: Neurovascularly intact x4. The left upper extremity still has nerve block intact. Her splint and dressing are clean, dry, and intact. ASSESSMENT/PLAN: 1. Status post ejection from horse. 2. Status post irrigation and debridement x2 of left open wrist fracture. 3. Status post open reduction and internal fixation of left open wrist fracture. 4. Complex scalp laceration, stable, closed in operating room on initial day of admission. 5. Adrenal insufficiency, cortisol less than 1.00. PLAN: Plan will be to continue supportive care, physical and occupational therapy. We will change her hydrocortisone to 25 mg q.6 and likely continue to wean her off this. Encourage out of bed and await final disposition. The patient is from [place] and plans on returning as soon as possible. I did not see Dr. Quinones postoperatively to find out how long she would like the patient stay here with us. Job ID: [id number]
--- NOTE | 2019-07-10 02:35 | OP ---
DATE OF PROCEDURE: 07/09/2019 PREOPERATIVE DIAGNOSES: 1. Left distal radius fracture, 4 part of the articular with bone loss. 2. Complete ulnar styloid fracture, type C or type III with triangular fibrocartilage complex tear piece attached to the fragment and marked instability. 3. Two 20 cm wounds. FINDINGS: No gross particulate contaminate whatsoever or necrosis on the small amount less than 0.5 teaspoon of denuded and nonviable flexor deep muscle belly was seen. Previous diagnosis of median nerve neurapraxia associated with the fracture and it has not resolved. PROCEDURES PERFORMED: 1. Debridement of wound. 2. Debridement of material associated with open fracture, radius intra-articular fracture as described above. 3. Debridement of material associated with fracture, ulnar styloid. 4. Open reduction and internal fixation of radius with Synthes 4-hole subarticular volar distal radius plate, Synthes. 5. Open reduction and internal fixation of ulnar styloid fracture. 6. Minor bone graft to radius fracture with cancellous chips from Cadaver bone bank. 7. C-arm supervision. 8. Application of short-arm splint. 9. Carpal tunnel release prophylactic with findings of mild narrowing and definite contusion seen. Median nerve just proximal to the carpal tunnel over the level of the fracture. TOURNIQUET TIME: 130 minutes total. ESTIMATED BLOOD LOSS: 20 mL. FINDINGS: We converted BR 2 debridements and previous type 2 wound by Gustilo classification to a type 1 open fracture. Thus, internal fixation was indicated. DESCRIPTION OF PROCEDURE: After successful general endotracheal anesthesia via general anesthesia, augmented by initial LMA, then changed to general, the patient had the limb prepped and draped. Time-out was done appropriately. She had some K-wires used to help stabilize this fracture and they were removed. The patient had the tourniquet inflated after exsanguination of the limb to 250 mmHg pressure. We then began to inspect each recess of this injury to include the longitudinal distal radius fracture wound and the fracture fragments, includin. Interfragmentary. 2. The palmar distal radioulnar joint. 3. The dorsal distal radial joint. 4. The ulnocarpal joint. 5. The lateral ulnar styloid fracture. We did not find a particular matter. We did see evidence of previous Bovie, some denuded muscle that was not necrotic and we debrided this at the level of the flexor deep tendon muscle belly tendon junction. Because the median nerve had a contusion area of almost 1.5 cm, but it was too intact, we performed a carpal tunnel release by visualizing the median nerve, following it at the contusion, which was at the level of the proximal edge of the volar fascia versus the [place] carpal tunnel and released this under direct visualization using a Zuni blade and a combination of tenotomy scissors. There was no abnormality doing this. Then, we used curettes, rongeur, tenotomy scissors and pickups, and 5 L normal saline Pulsavac pressure, divided equally between the ulnar styloid and radial wound to perform debridement. We used excisional technique for this debridement and it was down to including bone, distal radioulnar joint, ulnar styloid and ulnar carpal joint and there was no evidence of gross infection. Once this was done, irrigation completed, we began the radius fixation. The previous K-wires have been removed and replaced while maintaining the 2 new K-wires subjacent to the joint to hold the Melone medial fragment intact for the radial styloid fracture, we placed an additional 0.045 K-wire across the primary construct and primary fracture line into the radius proximal to the distal radioulnar joint on the ulnar aspect and we now had 5 degrees of palmar tilt. Then, once we were sure the bone was clean and had been inspected again, we then took some crushed bone graft from Cadaver cancellous chips, placed cancellous bone in the area of the fracture that was most comminuted to support the undersurface of the articular surface as well as the gap in the primary fracture lines with the radial shaft/metaphysis, placed the Synthes plate and its construct just below the joint in the frontal sagittal plane at the watershed tanya, stabilized this with K-wires, placed 3 screws distally first to ensure we obtained the tilt and then placed the proximal screw. Once this was done, we had excellent opposition and we tightened the screws. We then placed 2 more screws subjacent to articular surface, frontal and sagittal planes to not violate the articular surface, including 2 extra in the styloid fractures and 2 in the Melone complex. We now placed the remaining 3 screws proximal to the initial screw on ulnar shaft, and began to return our attention then to the ulnar styloid. At the ulnar styloid, we inspected again after this initial debridement as described above and we found no particulate matter evidence of infection. No necrotic or denuded tissue on this side of the wrist. The 4 mm skin wound, which was the primary wound, underwent inspection to include around the ulnar nerve and artery and neurovascular bundle was intact. Fascia had already been released and we were able to inspect and found no nonviable muscle or particulate matter in this area. We then trimmed 1 cm circumferential skin around this wound for later closure. We evaluated the fracture fragment and found to be more type C or type III fracture where its fracture had actually interdigitated 1-1.5 mm proximal to the TFCC insertion and a large triangular fibrocartilage was still attached to this ulnar styloid along with 2 superior ligaments. We then debrided this, prepared for internal fixation, and used a tension band technique with 0.045 and asymmetrical 0.035 wire, appropriate length, and the tension band had been applied appropriately using a heavy #2 Ethibond on OS4 needle that had been placed completely around the styloid to help coaptate this lateral edge nearly anatomically. Once we saw this clinical radiographs and saw no gross motion, rotated the hand through 80 degrees supination, 80 degrees pronation. No crepitance, we then finished the tension band technique by bending and tapping the wires, protrude only about 2-3 mm into the interosseous space. The tourniquet was then de deflated. We then made our final radiographs, we did not have to adjust any screws or wires, and rotation clinically was excellent, position of DRUJ and then with flexion, extension passively, there was no evidence of abnormality at the radiocarpal construct. Closure was accomplished of this 20 cm wound using 4-0 nylon for the carpal tunnel incision, in interrupted simple pattern. We then used 3-0 Monocryl to close the epidermis loosely over the longitudinal radius and a transverse ulnar and transverse palmar wound. The fascia was not closed on the radial side as well as the palmar wrist initial open wound as this was closed with interrupted Monocryl 4-0 followed by 4-0 nylon. The ulnar side wound had the capsule reapproximated with 2-0 Vicryl, subcutaneous closed with 3-0 Monocryl in a running fashion and then the epidermis reapproximated with 4-0 nylon. The fascia had been closed well proximal to the level of the fracture almost 4 cm proximal before fascia was not adequate for closure on this ulnar styloid approach. The patient had final radiographs made and there was no abnormality and we left the operating room without evidence of anesthetic or operative complication. Job ID: [id number]
[2019-07-10] MEDS: HYDROcodone/Acetaminophen 5/325 mg Tablet PO PRN (03:19)
[2019-07-10] MEDS: Sodium Chloride 0.9% 1,000 ML IV SCH (03:58)
[2019-07-10] MEDS: Levothyroxine Sodium 112 MCG TAB PO SCH (05:42)
[2019-07-10] MEDS: traMADol HCl 50 MG TAB PO PRN (05:50)
[2019-07-10] MEDS: Hydrocortisone Sod Succ/PF 100 mg/2 ml Vial IVP SCH ×2 (05:53→12:12)
[2019-07-10] MEDS: CEFAZOLIN 2 GM in Premix Bag 1 BAG IVPB SCH ×2 (06:07→12:13)
[2019-07-10] MEDS ORDERED: traMADol HCl 50 MG TAB PO PRN ×2 (07:24)
[2019-07-10] MEDS ORDERED: Acetaminophen 500 MG TAB PO SCH (07:30)
[2019-07-10] MEDS ORDERED: Bisacodyl 10 MG SUPP PR SCH (09:00)
[2019-07-10] MEDS: Liothyronine Sodium 5 MCG TAB PO SCH (09:03)
[2019-07-10] MEDS: Bupropion 150 MG XL TAB PO SCH (09:03)
[2019-07-10] MEDS: FLUoxetine HCl 20 MG CAP PO SCH (09:03)
[2019-07-10] MEDS: Aspirin 81 mg Enteric Coated Tablet PO SCH (09:03)
[2019-07-10] MEDS: Gabapentin 100 MG CAP PO SCH (09:04)
[2019-07-10] MEDS: Senokot S 8.6-50 MG TAB PO SCH (09:04)
[2019-07-10] MEDS: Ascorbic Acid 500 mg Chewable Tablet PO SCH (09:04)
[2019-07-10] MEDS: Ferrous Sulfate 325 MG TAB PO SCH (09:04)
--- NOTE | 2019-07-10 09:17 | RAD ---
EXAM: 3 views of the left wrist HISTORY: Distal radius and ulnar fractures COMPARISON: 07/06/2019 FINDINGS\IMPRESSION: 3 limited intraoperative fluoroscopic views of the left wrist shows the patient and the ongoing ORIF of the distal radius fracture. There has been removal of all of the previously seen K wires in the distal radius. K wires have also been placed through the ulnar styloid process fracture.
[2019-07-10] MEDS: Polyethylene Glycol 3350 17 GM Packet PO SCH (10:43)
[2019-07-10] MEDS: Famotidine/PF 20 mg/2ml Vial SLOW IVP SCH (10:44)
[2019-07-10 11:15] VITALS: TEMP 98.1
[2019-07-10 11:54] VITALS: BP 149/93
--- NOTE | 2019-07-10 13:36 | DIS ---
DATE OF ADMISSION: 07/06/2019 DATE OF DISCHARGE: 07/10/2019 ADMISSION DIAGNOSES: 1. Grade 2 open fracture with wound contamination, distal radius four-part intra-articular fracture. 2. Ulnar styloid fracture. DISCHARGE DIAGNOSES: 1. Grade 2 open fracture with wound contamination, distal radius four-part intra-articular fracture. 2. Ulnar styloid fracture. 3. Small tear of triangular fibrocartilage with type 3C ulnar fracture with the triangular fibrocartilage attached to the base. 4. Grade 2 contamination of wound with median nerve neuropraxia, ulnar nerve neuropraxia, but no evidence of laceration. 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 She reported a fall directly where she had sustained a scalp laceration without concussion and the open fracture listed above. After initial stabilization in the emergency room which will include neurovascular exam and examination of orientation, she had an obvious palmar spike 4 cm palmar laceration that was a transverse along with median nerve neuropraxia and ulnar nerve neuropraxia involving the small finger as well. Because of open wound, the environment in a horse show environment where there was possible dirt, she underwent near immediate operative treatment on the date of injury at [place], [place]. During the first procedure, found to have multiple particles and dirt both at the palmar wound site, also at the spike of bone that had penetrated the skin, but there was no gross dirt, grime, or other intra-articular abnormalities seen. The patient had underwent the first debridement on the date of admission, July 06, 2019. The wound was dressed open, after debridement of fracture was stabilized with K-wires to maintain length, the articular surface was made level, but no internal fixation was placed. She also underwent debridement of the wound as well as the ulnar styloid fracture and all soft tissue. The patient was treated with both gentamicin and vancomycin protocol, IV antibiotics for initial 24 hours, and then went back for a second debridement approximately 24 hours after injury. At that point, a few other part was seen. White blood cell count had increased from 6000 to 12,000, so it was decided that even though we found minimal particles in the wound, but none of the bone with the fractures were disassembled and we debrided, not in the joint, that the combination of leukocytosis with a few particles would not allow for early intervention. She then had the wound dressed open, underwent IV antibiotics protocol treatment again with the same 2 antibiotics, and a white blood cell count immediately the next day was down to normal range. Post trauma day #4, she was taken back to the operating room after having no fevers, showing some improvement with clinical examination in the hospital of digit flexion and extension and including opposition that was [place] 6, she returned to the operating room. On the evening of July 09, 2019, did underwent a final debridement of the fragments, debridement of the joint and soft tissue, debridement of the ulna fracture, and all soft tissue. There was a small amount of muscle that was denuded, but not necrotic, and this was excised, but there was no gross contamination seen after a formal debridement. Because of the continued median nerve neuropraxia, she underwent a carpal tunnel release. She had undergone a carpal tunnel release as well. Fixation was accomplished with a Synthes 4 hole juxta-articular low-profile volar distal radius plate, a tension band technique was used for the ulnar styloid fracture as fibrocartilage was seen and a small amount of suturing was used for repair. She also had a tension band technique using a heavy Ethibond suture. The patient had the wounds closed primarily over the drain. Drain was removed on the day of discharge, and the antibiotics were discontinued. IV antibiotics were given, at this time Ancef 2 g, for the time period between the final surgery completion and discharge. DISCHARGE PLANNING: Discharge diagnosis as above. I discussed this case in great detail day before the final surgery with the patient's primary care doctor who felt he could find her hand surgeon to follow her in [facility] near her home in [place]. I discussed the case after every procedure via phone call with the , Forrest, and with her accompanying friend Ms. Valle. She has been given oral clindamycin and prophylactic antibiotics for 5 days, we have given her [place] for analgesia/pain relief, she will be given a sling and will elevate the arm. I informed the friend she should not try to attempt to carry any luggage with this arm. I have also informed her and her that this is only the beginning, this is a very serious grade 3 open fracture with multiple fragments and involved both sides of the joint and that with the neuropraxia, she will need rehab, medication, and we need to continue with monitoring as it is still a low-grade possibility of infection although chances are greatly reduced from initial presentation. Job ID: [id number]
[2019-07-10] MEDS ORDERED: Ibuprofen 800 MG TAB PO SCH (14:00)
--- NOTE | 2019-07-12 08:58 | PQF ---
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 Clinical indicators are provided on the bottom of this form for your review Please check appropriate box(s): [ x ] Excisional Debridement of Scalp: [ ] Excised [ ] Cut away [ ] Other: Depth / layer: (deepest layer of debridement): [ x ] Skin[ x ] SubQ Tissue [ ] Fascia [ ] Muscle [ ] Tendon [ ] Bone Appearance of wound: (e.g., down to fresh bleeding tissue, etc.)___ Margins: (please specify): / x x Instruments used: [ x ] Scissors [ ] Scalpel [ ] Curette [ ] Soft tissue clipper [ ] Other: [ ] Non-excisional Debridement of Scalp: (Removal by flushing, brushing, chemical, or washing) Depth / layer: (deepest layer of debridement): [ x ] Skin[ x] Subcutaneous [ ] Fascia [ ] Muscle [ ] Tendon [ ] Bone [ ] Incision and Drainage only (No Debridement): Depth:[ ] Skin [ ] Subcutaneous [ ] Fascia [ ] Muscle [ ] Tendon [ ] Bone [ ] Escharectomy [ ] Other procedure diagnosis [ ] Unable to determine For continuity of documentation, please document condition throughout progress notes and discharge summary. Thank You. CLINICAL INDICATORS - SIGNS / SYMPTOMS / LABS - Irrigation and debridement- OP report, 07/06, DOREEN MORALES - The wound was then inspected at full depth- OP report, 07/06, DOREEN MORALES - there was a large cavity lesion of space- OP report, 07/06, DOREEN MORALES - Two separate the vascular bleeders were identified and cauterized and controlled- OP report, 07/06, DOREEN MORALES - Components used: Prolene 2-o stitchesx4 in a trauma- OP report, 07/06, DOREEN MORALES RISK FACTORS - irregular complex scalp laceration with hematoma formation- OP report, 07/06, DOREEN MORALES - Thrown out of horse and landed on a concrete wall hitting-H&P, 07/06, DOREEN MORALES TREATMENTS: - Components used: Prolene 2-o stitchesx4 in a trauma- OP report, 07/06, DOREEN MORALES (This form is maintained as a part of the permanent medical record) 2014 [employer]. 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
== END 2019-07-10 13:50 | disposition home or self-care (01) | DRG 464 ==
LOC: ERS 15:12 → SDC 16:53 → SURG A 21:45
PROVIDERS: ADMIT Surgery; ATTEND Surgery
PROC: 0JB00ZZ Excision of Scalp Subcutaneous Tissue and Fascia, Open Approach (ICD-10-PCS; principal; 2019-07-06)
PROC: 0PBJ0ZZ Excision of Left Radius, Open Approach (ICD-10-PCS; 2019-07-06)
PROC: 0PBL0ZZ Excision of Left Ulna, Open Approach (ICD-10-PCS; 2019-07-06)
PROC: 0PSJ34Z Reposition Left Radius with Internal Fixation Device, Percutaneous Approach (ICD-10-PCS; 2019-07-06)
PROC: 01Q40ZZ Repair Ulnar Nerve, Open Approach (ICD-10-PCS; 2019-07-06)
PROC: 01N50ZZ Release Median Nerve, Open Approach (ICD-10-PCS; 2019-07-06)
PROC: 03QC0ZZ Repair Left Radial Artery, Open Approach (ICD-10-PCS; 2019-07-06)
PROC: 0PBJ0ZZ Excision of Left Radius, Open Approach (ICD-10-PCS; 2019-07-07)
PROC: 0PBL0ZZ Excision of Left Ulna, Open Approach (ICD-10-PCS; 2019-07-07)
PROC: 01N50ZZ Release Median Nerve, Open Approach (ICD-10-PCS; 2019-07-09)
PROC: 0PSJ04Z Reposition Left Radius with Internal Fixation Device, Open Approach (ICD-10-PCS; 2019-07-09)
DX: S52.612 Displaced fracture of left ulna styloid process (principal); E27.40 Unspecified adrenocortical insufficiency; S55.112A Laceration of radial artery at forearm level, left arm, initial encounter; S52.502B Unspecified fracture of the lower end of left radius, initial encounter for open fracture type I or II; M85.842 Other specified disorders of bone density and structure, left hand; S53.32XA Traumatic rupture of left ulnar collateral ligament, initial encounter; S64.02XA Injury of ulnar nerve at wrist and hand level of left arm, initial encounter; S60.222A Contusion of left hand, initial encounter; D72.829 Elevated white blood cell count, unspecified; V80.010A Animal-rider injured by fall from or being thrown from horse in noncollision accident, initial encounter; S01.01XA Laceration without foreign body of scalp, initial encounter
CPT/HCPCS: 25605; 36415; 36416; 70450; 71045; 72125; 76000; 80053; 80170; 80202; 82533; 84703; 85025; 85610; 85730; 86850; 86900; 86901; 90471; 90715; 96361; 96365; 96375; C1713; G0390; J0131; J0690; J0702; J1100; J1170; J1200; J1580; J1644; J1720; J1885; J2001; J2250; J2270; J2405; J2550; J2704; J2765; J3010; J3260; J3370; J3490; J7050; S0020; S0028